=== PATIENT | female | born 1965 | race Caucasian/White ===

== ENCOUNTER 2017-07-14 12:14 | Inpatient (IN) ==
[2017-07-14] MEDS ORDERED: LR 1,000 ML IV SCH (12:45)
[2017-07-14 12:59] VITALS: BMI 28.0
[2017-07-14] MEDS: NOZIN NASAL SWAB NAS ONE ×3 (14:45→14:49)
[2017-07-14] MEDS ORDERED: LIDOCAINE 1% (10mg/ml) 30ml SDV INJ ONE (15:46)
[2017-07-14] MEDS ORDERED: BUPIVACAINE 0.25% (2.5mg/ml) PF 30ml INJECTION ONE (15:46)
[2017-07-14] MEDS ORDERED: VANCOMYCIN 1,000 MG INJECTION ONE ×2 (15:46→16:42)
[2017-07-14] MEDS ORDERED: PROPOFOL 500 MG/50 ML VIAL IV ONE (15:59)
[2017-07-14] MEDS ORDERED: FentaNYL 100 MCG/2 ML INJECTION ONE ×2 (15:59→18:03)
[2017-07-14] MEDS ORDERED: SEVOFLURANE 250ml LIQUID IH ONE (16:01)
--- NOTE | 2017-07-14 16:06 | Anesthesia Preoperative Report ---
Anesthesia Preoperative Record - Date and Time Date: 07/14/17 Preoperative Diagnosis: knee spacer exchange/antibiotic beads Proposed Procedure: right knee I&D and spacer exchange NPO Since Date: 07/13/17 NPO Since Time: 23:00 Allergies/Adverse Reactions: Allergies Allergy/AdvReac Type Severity Reaction Status Date / Time Penicillins Allergy Intermediate HIVES Verified 04/08/09 09:35 - Vital Signs Vital Signs: Temperature 98.4 F 07/14/17 12:57 Pulse Rate 90 07/14/17 13:14 Respiratory Rate 16 07/14/17 12:57 Blood Pressure 116/75 07/14/17 12:57 Pulse Oximetry 99 07/14/17 12:57 Height and Weight: Height 1.65 m Weight 76.6 kg Body Mass Index 28.0 - Medications Inpatient Medications: Current Medications Lactated Ringer's (Lactated Ringers) 1,000 mls @ 50 mls/hr IV .Q20H KENNEDY Last Admin: 07/14/17 13:36 Dose: 50 mls/hr Home Medications: Home Medications Medication Instructions Recorded Confirmed Type Indomethacin SR [Indocin Sr] 75 mg PO DAILY #0 04/09/09 07/14/17 History Is Patient on Beta Jorge?: No - Medical History Respiratory: DENIES: Sleep Apnea Cardiovascular: Reports: Hypertension (hx.) Gastrointestional: Reports: Gastroesophageal Reflux Disease (resolved), Other ( removed colon psuedo tumor) Neuro/Musculoskeletal: Reports: HX.MS.OSAR, Other (arthritis) Other History: Reports: Blood Transfusions (no reaction) DENIES: Anesthesia Reactions - Surgical History Respiratory Surgery/Treatments: Reports: Other (RIGHT LOWER LOBECTOMY AT AGE 11 FOR A SPONTANEOUS PNEUMONIA) GI Surgery/Treatments: Reports: Cholecystectomy (february 2017), Hernia Repair ( inguinal hernia repair), Colonoscopy (2017), Other (gastric sleeve) Musculoskeletal Surgery/Tx: Reports: Total Knee Replacement (jeanine.) Reproductive Surgery/Treatment: Reports: Hysterectomy (vag.), Tubal Ligation Anesthesia Reactions: None Hx Family Anesthesia Reaction: No History of Motion Sickness: No - Social History Smoking Status: Never smoker Hx Chewing Tobacco Use: No Second Hand Exposure: No Substance Use Type: does not use - Pertinent Findings Laboratory: CBC and BMP 07/14/17 13:07 EKG: Sinus Rhythm - Physical Exam Respiratory Exam: Present: lungs clear, bilateral breath sounds equal Cardiovascular Exam: Present: regular rate and rhythm - Airway Assessment Mallampati Score: II TMD: 3 Fingerbreadths Neck Extension: good Overall Assessment: no airway concerns - ASA ASA Score: 2 - Plan Anesthesia: General Inhalation Gases, Regional Block (adductor canal block for post op pain) - Discussion Discussion: Discussed risks/options/alternatives of anesthesia and questions answered. Patient consents. Nursing pain assessment noted. Present for Discussion: family member Attestation Statement: Prior to the delivery of any anesthetic medication, I examined the patient, developed the plan, obtained the patient's consent and discussed the risk and benefits of the procedure with the patient/guardian. - Additional Information Seen by Anesthesia: Yes
[2017-07-14] MEDS ORDERED: KETAMINE 500 MG/10 ML INJECTION ONE (16:15)
[2017-07-14] MEDS ORDERED: DEXAMETHASONE 4 MG/ML INJECTION ONE (16:23)
[2017-07-14] MEDS ORDERED: ONDANSETRON 4 MG/2 ML INJECTION ONE (16:23)
[2017-07-14] MEDS ORDERED: HYDROMORPHONE 2 MG/ML INJECTION ONE (16:35)
[2017-07-14] MEDS ORDERED: TOBRAMYCIN 80 MG/2 ML IAR ONE (17:00)
[2017-07-14] MEDS ORDERED: VANCOMYCIN 1,000 MG INJECTION IAR ONE ×2 (17:08)
[2017-07-14] MEDS ORDERED: ONDANSETRON 4 MG/2 ML INJECTION IVP PRN ×2 (17:09→18:52)
[2017-07-14] MEDS ORDERED: ROPIVACAINE 0.5% (5mg/ml) 30ml INJ ONE (18:09)
[2017-07-14] MEDS: HYDROMORPHONE 2 MG/ML INJECTION IVP PRN ×2 (18:22→18:32)
--- NOTE | 2017-07-14 18:23 | Anesthesia Procedure Note ---
Peripheral Nerve Blockade - Procedure Physician: Jez Griffin MD Date: 07/14/17 Discussion: Discussed risks/options/alternatives of anesthesia and questions answered. Patient consents. Nursing pain assessment noted. Block Start: 18:12 Block Stop: 18:17 Blocked Employed: Adductor Canal, Single Injection Indication: Post-Operative Pain Approach: Right Side Confirmed Position: Supine Patient: Consent, Risks/Benefits Discussed, Informed, Post Block Act. Discussed IV Sedation: Yes (post op) Sedation: Sedate w/Meaningful Contact Initial Vital Signs: Temperature 98.4 F 07/14/17 12:57 Temperature Source Oral 07/14/17 12:57 Pulse Rate 90 07/14/17 12:57 Respiratory Rate 16 07/14/17 12:57 Blood Pressure 116/75 07/14/17 12:57 Blood Pressure Mean 88 07/14/17 12:57 Blood Pressure Position Sitting 07/14/17 12:57 Pulse Oximetry 99 07/14/17 12:57 Oxygen Delivery Method 07/14/17 12:57 Post Vital Signs: Temperature 98.4 F 07/14/17 12:57 Pulse Rate 90 07/14/17 13:14 Respiratory Rate 16 07/14/17 12:57 Blood Pressure 116/75 07/14/17 12:57 Pulse Oximetry 99 07/14/17 12:57 Prep: Chlorhexadine/ETOH, Sterile Technique Ultrasound Used?: Yes - Nerve Simulator Muscle Response: No Paresthesia/Pain: None - Injectate Ropivacaine (%): 0.5 Ropivacaine (mL): 20 Was Epi 1:200,000 Used?: No Injection: Injection made incrementally with constant monitoring and aspiration every 5 ml
--- NOTE | 2017-07-14 18:46 | Anesthesia Postoperative Note ---
- Date and Time Date: 07/14/17 Time: 18:45 - Status Patient Participated in Evaluation: Patient Participated in Person Vital Signs: Temperature 98.3 F 07/14/17 18:07 Pulse Rate 104 H 07/14/17 18:07 Respiratory Rate 20 07/14/17 18:07 Blood Pressure 146/75 H 07/14/17 18:07 Pulse Oximetry 100 07/14/17 18:07 Respiratory Function: Airway Patent, Regular Respirations Cardiovascular Function: Regular Pulse Mental Status: Alert and Oriented Pain Intensity: 2 Hydration: IV Infusing Complications During Recover: None Apparent - Follow-Up Instructions Instructions: Per Surgeon
[2017-07-14] MEDS ORDERED: DiphenhydrAMINE 25 MG CAPSULE PO PRN (18:52)
[2017-07-14] MEDS ORDERED: HYDROMORPHONE 2 MG/ML INJECTION IVP PRN (18:52)
[2017-07-14] MEDS ORDERED: NOZIN NASAL SWAB NAS ONE (18:52)
[2017-07-14] MEDS ORDERED: LORazepam 1 MG TABLET PO PRN (18:52)
[2017-07-14] MEDS ORDERED: DiphenhydrAMINE 50 MG/ML INJECTION IVP PRN (18:52)
[2017-07-14] MEDS ORDERED: VANCOMYCIN - PHARMACY CONSULT MC ONE (18:52)
[2017-07-14] MEDS: ASPIRIN *EC* 81 MG TABLET PO SCH (20:10)
[2017-07-14] MEDS: ACETAMINOPHEN 325 MG TABLET PO SCH (20:10)
[2017-07-14] MEDS: NS 1,000 ML IV SCH (20:11)
[2017-07-14] MEDS: DOCUSATE SODIUM 100 MG CAPSULE PO SCH (20:11)
[2017-07-14] MEDS: SENNOSIDES 8.6 MG TABLET PO SCH (20:11)
[2017-07-14] MEDS: NOZIN NASAL SWAB NAS SCH (23:16)
[2017-07-15] MEDS: Oxycodone *IR* 5 MG TABLET PO PRN ×3 (02:15→19:50)
[2017-07-15] MEDS: NOZIN NASAL SWAB NAS SCH ×2 (06:40→14:14)
--- NOTE | 2017-07-15 08:22 | Operative Note ---
DATE OF SURGERY 07/14/2017 PREOPERATIVE DIAGNOSIS Right knee periprosthetic infection. POSTOPERATIVE DIAGNOSIS Right knee periprosthetic infection. PROCEDURE Irrigation, debridement, spacer exchange and application of antibiotic beads to right knee. SURGEON Jez Griffin MD STEERER JESSEE Vance COMPLICATIONS None. ANESTHESIA General with LMA. BRIEF HISTORY Mrs. Castillo is a kind 52-year-old female who had a right total knee arthroplasty four [address] Salcedo. She has done very well with her knee replacement until three days ago when she noticed increased pain and swelling in the right knee. The pain actually resolved, but she did see Dr. Salcedo yesterday and aspiration of the knee revealed gram-positive cocci and a cell count of over 67,000. Given these findings, Dr. Salcedo and myself both recommended today's procedure. I reviewed with her the risks and benefits of the surgery and expected postoperative course. We also discussed the success of the surgery to eradicate the infection and possible need for further surgery if this does not eradicate the infection. Antibiotics had been held until cultures could be taken intraoperatively. All of her questions were answered. DESCRIPTION OF PROCEDURE Mrs. Castillo and her right knee were identified and marked in the preoperative holding area. She was brought back to the operating suite and placed supine on the operating table. She was placed under general anesthesia. The right lower extremity was prepped and draped in my normal sterile fashion. Time-out was performed but antibiotics were not yet given. We utilized the previous anterior midline incision. Sharp dissection was carried down to the capsule. Capsulotomy was then performed. This was a medium parapatellar arthrotomy. Inside the knee joint there was dish-water appearing fluid. It was not by any means a terribly large effusion. I began by taking three synovial biopsies. These were handed off individually into sterile cups. We then gave the go-ahead for IV vancomycin to be given. I continued with a complete synovectomy which was done sharply. The tissue itself appeared healthy without any signs of chronic infection or necrosis. The knee replacement also had no signs of abnormal wear or loosening. The knee itself was nice and stable throughout range of motion. The patella tracked well. After a thorough synovectomy was performed, the previous spacer was removed. Debridement of the posterior capsule was also performed with a curette. We then thoroughly irrigated the knee using iodine solution as well as normal saline. A total of 6 liters were used. We then thoroughly irrigated the knee with IrriSept solution. The metal components were rubbed with the sponge side of a scrub brush. A curette was used on the other exposed bone. We then replaced the spacer with a brand new spacer. It was a PS 12 mm spacer. It was installed without incident. A locking bar was also installed. I then irrigated one more time with Betadine solution and another 3 liters of normal saline. After that again the remaining IrriSept solution was used. We then placed STIMULAN calcium sulfate pellets in both gutters which were filled with half a gram of vancomycin and 240 mg of tobramycin. One gram of vancomycin powder was also placed into the knee joint before the capsulotomy was closed with antimicrobial resistant #1 Vicryl suture. The subcutaneous tissue was then closed with 2-0 antimicrobial Vicryl suture. The skin was closed with running 4-0 Monocryl in the subcuticular layer followed by Dermabond and a sterile dressing. Everybody involved then changed gloves after the first 3 liters of irrigation was performed. After completion of surgery she was allowed to awaken from general anesthesia and taken to the recovery room under the care of Anesthesia. She tolerated the procedure well. There were no complications. IV vancomycin will be continued until a bug is identified and sensitivities are also identified. DIAMANTE
--- NOTE | 2017-07-15 08:34 | Orthopedic Progress Note ---
Date: Subjective/Severity of Illness: Judy is doing well. Pain is much less than she expected. Her synovial tissues samples from the OR have not been processed yet. Synovial fluid exam from 07/13 showed gm+ cocci but no identification beyond that is documented yet. Dr Mckinnon has ordered a CT of the pelvis and abdomen to r/o infectious process due to her previous hx last summer. Bowels have been different since her surgery last summer. She will adjust her bowel meds as needed. No CP or SOA. No other joint concerns this AM. Orthopedic Objective PO Vital signs: Temperature 97.9 F 07/15/17 07:41 Pulse Rate 73 07/15/17 07:41 Respiratory Rate 16 07/15/17 04:00 Blood Pressure 120/69 07/15/17 07:41 Pulse Oximetry 98 07/15/17 07:41 Height and Weight: Height 5 ft 5 in Weight 173 lb 15.115 oz Body Mass Index 28.0 - Constitutional General Appearance: Present: alert, cooperative, no acute distress - Respiratory Exam Present: non-labored - Extremities Exam Extremities: Present: pulses intact - Surgical Site Incision: Mepilex dressing intact, dressing intact - Neurological Exam Present: no deficits - Psychiatric Exam Present: alert, normal affect - Labs Result Diagrams: 07/15/17 04:04 07/15/17 04:04 Abnormal lab results 07/14/17 07/15/17 07/15/17 Range/Units 13:07 04:04 04:04 RBC 3.79 L (4.00-5.20) M/MM3 Hgb 10.1 L 8.8 L D (12-16) GM/DL Hct 33.5 L 29.6 L D (36-46) % MCHC 30.1 L (31-37) GM/DL Neut % (Auto) 71.7 H (33-66) % Lymph % (Auto) 20.3 L (23-45) % Creatinine 0.6 L (0.7-1.2) MG/DL C-Reactive Protein 60.9 H (0-9) MG/L H & H 07/14/17 07/15/17 Range/Units 13:07 04:04 Hgb 10.1 L 8.8 L D (12-16) GM/DL Hct 33.5 L 29.6 L D (36-46) % Orthopedic Assessment and Plan (1) Painful total knee replacement Status: Acute Assessment and Plan: Await gram stain and C/S from synovial tissue in surgery last night. Synovial fluid analysis from 07/13/17 should give more information today. ID consult with Dr Vaughan expected today. Consider PICC line depending on Dr Vaughan recommendations. CT abdomen and pelvis today per Dr Salcedo's recommendations. ASA and SCDs for DVT coverage. Mobilize with PT / OT. - Anticoagulation Therapy Anticoagulation: ASA 81 mg PO BID x6 weeks Hospital Course Summary Disclaimer: The visit summary below is not to be considered part of the above Progress Note.
--- NOTE | 2017-07-15 09:33 | Pharmacy Consult-Antibiotics ---
Pharmacy Consult-Vancomycin - Laboratory Information WBC 8.7 T/MM3 (4.5-11.0) 07/14/17 13:07 BUN 12.0 MG/DL (7-17) 07/15/17 04:04 Creatinine 0.6 MG/DL (0.7-1.2) L 07/15/17 04:04 - Consult Information VANCOMYCIN CONSULT: Dx: Painful total knee replacement. Current Renal Fx: SCr = 0.6 mg/dl. Estimated Cr Cl ~ 116 mL/min Will change the original dose of Vancomycin 2,000 mg IV q8hrs.to Vancomycin 1, 500 mg iv every 8 hours. The pharmacy will continue to monitor and adjust regimen to maintain therapeutic levels. Thank you for the VancomycinCharli, Pharmacist.
[2017-07-15] MEDS ORDERED: NS 100 ML ONE (10:03)
[2017-07-15] MEDS ORDERED: SALINE FLUSH 10ml SYRINGE ONE (10:03)
[2017-07-15] MEDS ORDERED: IOHEXOL 300mg/ml 100ml INJECTION ONE (10:03)
[2017-07-15] MEDS: ASPIRIN *EC* 81 MG TABLET PO SCH (10:50)
[2017-07-15] MEDS: POLYETHYL GLYCOL 3350 17gm PACKET PO SCH (10:50)
[2017-07-15] MEDS: ACETAMINOPHEN 325 MG TABLET PO SCH ×3 (10:50→17:06)
[2017-07-15] MEDS: DOCUSATE SODIUM 100 MG CAPSULE PO SCH (10:50)
--- NOTE | 2017-07-15 14:06 | CT Scan Report ---
Indication: Infected prosthetic hardware, evaluate for intra-abdominal infectious process PROCEDURE: CT abdomen pelvis w con: Encounter: Initial Comparison: None Technique: Axial CT images were performed through the abdomen and pelvis after the administration of intravenous contrast. Coronal and sagittal two-dimensional reformats. Automated Exposure Control and Iterative Reconstruction dose reducing techniques were utilized. Contrast: Omnipaque 300 100 mL Findings: The lung bases are clear. The liver is normal. The gallbladder is surgically absent. The spleen, pancreas and adrenal glands are within normal limits. Postoperative changes from prior gastric bypass. The kidneys are normal. No abdominal or pelvic lymphadenopathy. There is a small bowel containing left inguinal hernia without evidence of acute bowel obstruction. Bladder is normal. Uterus is absent. Mild sigmoid diverticulosis without evidence of diverticulitis. Postoperative changes from right sided colon resection. There is some residual inflammation in the surrounding fat probably due to the surgery. There is no undrained fluid collection or rim-enhancing abscess appreciated. Bone windows show mild scoliosis and degenerative change in the spine. No lytic or blastic osseous lesion. The patient was brought to the imaging department 2.5 hours later for more delayed phase imaging which demonstrates progression of oral contrast throughout the colon. There is some soft tissue thickening or edema at the anastomosis site but no evidence of undrained fluid or abscess. Impression: Residual inflammation from right colon surgery without evidence of abscess. .
[2017-07-15] MEDS: NS 1,000 ML IV SCH (15:00)
[2017-07-15] MEDS ORDERED: SENNOSIDES 8.6 MG TABLET PO PRN (17:56)
[2017-07-16] MEDS: ACETAMINOPHEN 325 MG TABLET PO SCH ×5 (00:31→21:12)
[2017-07-16] MEDS: NOZIN NASAL SWAB NAS SCH ×4 (00:31→21:25)
[2017-07-16] MEDS: ASPIRIN *EC* 81 MG TABLET PO SCH ×3 (00:31→21:12)
[2017-07-16] MEDS: Oxycodone *IR* 5 MG TABLET PO PRN ×4 (00:32→22:36)
[2017-07-16] MEDS: DOCUSATE SODIUM 100 MG CAPSULE PO SCH ×3 (00:33→21:24)
[2017-07-16] MEDS: SENNOSIDES 8.6 MG TABLET PO SCH ×2 (00:34→21:24)
[2017-07-16] MEDS: POLYETHYL GLYCOL 3350 17gm PACKET PO SCH (08:05)
--- NOTE | 2017-07-16 09:19 | Orthopedic Progress Note ---
Date: Subjective/Severity of Illness: Judy is doing well. She is up and seated in her chair today. Notes that pain got a little ahead of her yesterday but much improved now. Cultures remain pending. Denies NVFC. Synovial fluid exam from 07/13 showed gm+ cocci but no identification beyond that is documented yet. PICC line placed yesterday. No other joint concerns this AM. Awaiting culture/ sensitivities and Dr. Vaughan to evaluate. Orthopedic Objective PO Vital signs: Temperature 98.2 F 07/16/17 08:00 Pulse Rate 79 07/16/17 08:00 Respiratory Rate 16 07/16/17 08:00 Blood Pressure 119/67 07/16/17 08:00 Pulse Oximetry 100 07/16/17 08:00 Height and Weight: Height 5 ft 5 in Weight 173 lb 11.588 oz Body Mass Index 28.0 - Constitutional General Appearance: Present: alert, cooperative, no acute distress - Respiratory Exam Present: non-labored - Extremities Exam Extremities: Present: pulses intact - Surgical Site Incision: Mepilex dressing intact, dressing intact - Neurological Exam Present: no deficits - Psychiatric Exam Present: alert, normal affect - Labs Result Diagrams: 07/16/17 04:02 07/16/17 04:02 Abnormal lab results 07/16/17 07/16/17 Range/Units 04:02 04:02 Hgb 8.3 L (12-16) GM/DL Hct 27.7 L (36-46) % Creatinine 0.6 L (0.7-1.2) MG/DL H & H 07/14/17 07/15/17 07/16/17 Range/Units 13:07 04:04 04:02 Hgb 10.1 L 8.8 L D 8.3 L (12-16) GM/DL Hct 33.5 L 29.6 L D 27.7 L (36-46) % Orthopedic Assessment and Plan (1) Painful total knee replacement Status: Acute Assessment and Plan: Await gram stain and C/S from synovial tissue in surgery as still pending. ID consult with Dr Vaughan expected Tuesday. PICC line already placed. ASA and SCDs for DVT coverage. Mobilize with PT / OT. Hospital Course Summary Disclaimer: The visit summary below is not to be considered part of the above Progress Note.
--- NOTE | 2017-07-16 14:48 | Pharmacy Consult-Antibiotics ---
Pharmacy Consult-Vancomycin - Laboratory Information WBC 8.7 T/MM3 (4.5-11.0) 07/14/17 13:07 BUN 12.0 MG/DL (7-17) 07/16/17 04:02 Creatinine 0.6 MG/DL (0.7-1.2) L 07/16/17 04:02 Vancomycin Trough 26.02 UG/ML (15-20) H* 07/16/17 13:36 Vancomycin DAY 3 Therapy: Vancomycin started post knee spacer exchange/antibiotic beads implant on 07/14. Trough high - HOLDING dose until tonight at 2100, then will restart at 1500mg IV q12hrs. This gives calculated peak/trough = 26/17 (trough target range = 15-20mcg/ml). Renal fx remains stable. Will confirm trough level prior to dose on 1120 am. Thank you.
[2017-07-16] MEDS ORDERED: BISACODYL 10 MG SUPPOSITORY RECTALLY SCH (20:00)
[2017-07-17] MEDS: NOZIN NASAL SWAB NAS SCH ×3 (06:04→21:35)
--- NOTE | 2017-07-17 06:53 | Orthopedic Progress Note ---
Date: Subjective/Severity of Illness: Judy continues to do well. Pain is well controlled. She has been up and ambulating. Cultures remain pending with negative gram stain and no microbial growth. Denies NVFC. Synovial fluid exam from 07/13 showed gm+ cocci but no identification beyond that is documented yet. PICC line is in place. No other joint concerns this AM. Awaiting culture/ sensitivities and Dr. Vaughan to evaluate. Orthopedic Objective PO Vital signs: Temperature 97.9 F 07/17/17 06:00 Pulse Rate 80 07/17/17 06:00 Respiratory Rate 16 07/17/17 06:00 Blood Pressure 124/69 07/17/17 06:00 Pulse Oximetry 98 07/17/17 06:00 Height and Weight: Height 5 ft 5 in Weight 173 lb 11.588 oz Body Mass Index 28.0 - Constitutional General Appearance: Present: alert, cooperative, no acute distress - Respiratory Exam Present: non-labored - Cardiovascular Exam Capillary Refill: < 2-3 Seconds - Abdominal Exam Present: soft, normoactive BS x4. Absent: tenderness, distended - Extremities Exam Extremities: Present: pulses intact. Absent: Catrina's sign - Surgical Site Incision: clean, dry, intact, Mepilex dressing intact, dressing intact - Neurological Exam Present: no deficits - Psychiatric Exam Present: alert, normal affect - Labs Result Diagrams: 07/16/17 04:02 07/16/17 04:02 Abnormal lab results 07/16/17 Range/Units 13:36 Vancomycin Trough 26.02 H* (15-20) UG/ML H & H 07/14/17 07/15/17 07/16/17 Range/Units 13:07 04:04 04:02 Hgb 10.1 L 8.8 L D 8.3 L (12-16) GM/DL Hct 33.5 L 29.6 L D 27.7 L (36-46) % Orthopedic Assessment and Plan (1) Painful total knee replacement Status: Acute Assessment and Plan: Await gram stain and C/S from synovial tissue in surgery as still pending. but negative thus far. ID consult with Dr Vaughan expected Tuesday. PICC line already placed. ASA and SCDs for DVT coverage. Continue to mobilize with PT / OT. Hospital Course Summary Disclaimer: The visit summary below is not to be considered part of the above Progress Note.
[2017-07-17] MEDS: ASPIRIN *EC* 81 MG TABLET PO SCH ×2 (09:03→21:34)
[2017-07-17] MEDS: POLYETHYL GLYCOL 3350 17gm PACKET PO SCH (09:03)
[2017-07-17] MEDS: DOCUSATE SODIUM 100 MG CAPSULE PO SCH ×2 (09:03→21:20)
[2017-07-17] MEDS: ACETAMINOPHEN 325 MG TABLET PO SCH ×4 (09:03→21:33)
[2017-07-17] MEDS: Oxycodone *IR* 5 MG TABLET PO PRN ×2 (11:54→21:33)
[2017-07-17] MEDS ORDERED: SALINE FLUSH 10ml SYRINGE IV PRN (13:19)
[2017-07-17] MEDS: SENNOSIDES 8.6 MG TABLET PO SCH (21:20)
[2017-07-18 04:40] VITALS: RESP 16
[2017-07-18] MEDS: NOZIN NASAL SWAB NAS SCH (07:16)
[2017-07-18] MEDS: POLYETHYL GLYCOL 3350 17gm PACKET PO SCH (08:34)
[2017-07-18] MEDS: DOCUSATE SODIUM 100 MG CAPSULE PO SCH (08:34)
[2017-07-18] MEDS: ASPIRIN *EC* 81 MG TABLET PO SCH (08:46)
[2017-07-18] MEDS: ACETAMINOPHEN 325 MG TABLET PO SCH (08:46)
--- NOTE | 2017-07-18 09:34 | Infectious Disease Consult ---
Infectious Disease Consult Date of Consultation: 07/18/17 Requesting Physician: Jez Griffin Reason for Consultation: antibiotic recs History of Present Illness: Ms. Castillo is a 52 y/o woman with a h/o bilateral TKAs. She noted R knee stiffness last Tuesday (07/11), which progressed overnight. By Tuesday, she had pain, swelling, and her knee felt tight. She was seen by Dr. Salcedo on 07/13 and she had 67K WBCs, and the gram stain had some GPC. She was admitted, and undwerwent I&D with poly exchange on 07/14. All the cultures have been negative. The only one with a positive gram stain was the initial aspiration. She's been on Vancomycin. I've been asked to help with her antibiotics. She feels that she's ready for discharge today. Medications Home Medications Medication Instructions Recorded Confirmed Type Indomethacin SR [Indocin Sr] 75 mg PO DAILY #0 04/09/09 07/14/17 History Allergies Allergy/AdvReac Type Severity Reaction Status Date / Time Penicillins Allergy Intermediate HIVES Verified 04/08/09 09:35 [facility] Patient Stated Medical History Other HEENT Yes: wear glasses Hypertension Yes: hx. Sleep Apnea No Gastroesophageal Reflux Yes: resolved Disease Other GI Yes: removed colon psuedo tumor Hx Renal Disease No Hx Urinary Tract Infection Yes: occ. Anemia Yes Osteoarthritis Yes Other Musculoskeletal Yes: arthritis Other Infectious Yes: CHICKEN POX A CHILD Anesthesia Reactions No Blood Transfusions Yes: no reaction Clinic Medical History (Last Reviewed 07/13/17 @ 13:39 by Jose Salcedo MD) Painful total knee replacement (Acute Medical) Surgical History: Partial hysterectomy. Resection of right lower lobe of lung age 11 for pneumothorax. R inguinal hernia repair. lap allen February 2017. intestinal resection with anastamosis March 2017. R TKA 2012, L TKA 2007 Family History: Father of [place] Mother has HTN, arthritis 2 sisters have from MDS, and 1 sister of AML - Social History Smoking status: Never smoker Substance use type: does not use Alcohol intake frequency: does not drink Current occupation: RN at [employer] Current residence: Apartment/Private Home Review of Systems - Constitutional Constitutional: Absent: chills, fever(s) - EENMT Eyes: Absent: change in vision - Cardiovascular Cardiovascular: Absent: chest pain - Respiratory Respiratory: Absent: cough, dyspnea - Gastrointestinal Gastrointestinal: Present: diarrhea (intermittent, after her colon resection). Absent: abdominal pain, nausea, vomiting - Genitourinary Genitourinary: Absent: dysuria - Musculoskeletal Musculoskeletal: Present: arthralgias (R knee), joint swelling (R knee) - Integumentary/Breasts Integumentary: Absent: rash - Neurological Neurological: Absent: headache(s) - Psychiatric Psychiatric: Absent: anxiety, depression Exam Vital Signs: Temperature 98.3 F 07/18/17 07:43 Pulse Rate 88 07/18/17 07:43 Respiratory Rate 16 07/18/17 07:43 Blood Pressure 107/67 07/18/17 07:43 Pulse Oximetry 98 07/18/17 07:43 Height/Weight/BMI: Height 1.65 m Weight 78.8 kg Body Mass Index 28.0 - Constitutional Present: no acute distress, well nourished, well developed - Routine HEENT Exam Head: Present: normocephalic Eye: Present: EOMI, PERRL ENT: Present: mucous membranes moist, oropharynx clear, dentition normal - Routine Neck Exam Present: supple - Routine Respiratory Exam Present: CTA bilaterally - Routine Cardiovascular Exam Present: RRR. Absent: murmur - Routine Abdominal Exam Present: soft, normoactive bowel sounds, non distended. Absent: tenderness, rebound, guarding - Routine Extremities Exam Absent: cyanosis, clubbing, edema - Detailed Lower Extremity Exam Knee: Right joint effusion, Right warmth, Right full ROM (appears to be able to walk without problems) - Routine Skin Exam Absent: rash Comments: RUE PICC site ok - Routine Neurological Exam Present: alert, oriented X3, CN II-XII intact. Absent: motor deficit - Routine Psychiatric Exam Present: normal affect, normal thought process Results - Labs CBC & Chem 7: 07/16/17 04:02 07/16/17 04:02 Labs: Laboratory Tests 07/13/17 11:05 Fluid RBC [id number] Fld Tot Nucleated Cell 31784 Fluid Neutrophils 87 Fluid Lymphocytes 3 Fluid Monocytes 10 Microbiology Results: Microbiology 07/14/17 16:41 Knee, Right Intraop Tissue Gram Stain - Final 07/14/17 16:41 Knee, Right Intraop Tissue Surgical Culture - Final No Growth After 3 Days 07/14/17 16:40 Knee, Right Intraop Tissue Gram Stain - Final 07/14/17 16:40 Knee, Right Intraop Tissue Surgical Culture - Final No Growth After 3 Days 07/14/17 16:39 Knee, Right Intraop Tissue Gram Stain - Final 07/14/17 16:39 Knee, Right Intraop Tissue Surgical Culture - Final No Growth After 3 Days Impression: Infected R TKA, s/p I&D with poly exchange 07/14/17, GPC on stain, but cultures negative. 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 CM has already contacted [facility]. I wrote for routine PICC cares, weekly CBC with diff, BMP, CRP , CPK to be faxed to my office at [phone]. I'll see her in follow up in about 3 weeks. OK to discharge after her first dose of Dapto. Discussed with Dr. Griffin.
[2017-07-18] MEDS ORDERED: DAPTOmycin 500 MG in NS 10 ML IVP SCH (09:45)
[2017-07-18] MEDS: Oxycodone *IR* 5 MG TABLET PO PRN (11:40)
[2017-07-18 12:23] VITALS: BP 125/73; PULSE 83; TEMP 97.9; O2SAT 97
--- NOTE | 2017-07-26 07:26 | Discharge Summary ---
Orthopedic Discharge Info Date of admission: 07/14/17 12:14 Anticipated date of discharge: 07/18/17 Primary care physician: Ayad Donohue MD Attending Physician: Jez Griffin MD Consults: 07/14/17 18:52 Case Management Consult [CONS] Routine Reason For Exam: Discharge Planning DME-Walker [CONS] Routine Height: 5 ft 5 in Weight: 168 lb 13.985 oz Comment: change dressing in 2 weeks Physician [Physician Consult] [CONS] Routine Consulting Provider: Sahara Vaughan Reason For Exam: Septic TKA Ordering Provider has Notified Certified Coatings Inspector: No Total Joint Outpatient Therapy [CONS] Routine Comment: change dressing in 2 weeks - Discharge Diagnosis (1) Painful total knee replacement Status: Acute - Procedures Procedures: Procedures Other and unspecified vaginal hysterectomy (04/09/09) Other repair of vulva and perineum (04/09/09) Spinal blood patch (04/09/09) Total knee replacement (03/13/13) Vaginal reconstruction (04/09/09) I&D right knee with spacer exchange 07/11/17. - Laboratory Result Diagrams: 07/16/17 04:02 07/16/17 04:02 Laboratory: H & H 07/14/17 07/15/17 07/16/17 Range/Units 13:07 04:04 04:02 Hgb 10.1 L 8.8 L D 8.3 L (12-16) GM/DL Hct 33.5 L 29.6 L D 27.7 L (36-46) % - Microbiology Microbiology 07/14/17 16:41 Knee, Right Intraop Tissue Gram Stain - Final 07/14/17 16:41 Knee, Right Intraop Tissue Surgical Culture - Final No Growth After 3 Days 07/14/17 16:40 Knee, Right Intraop Tissue Gram Stain - Final 07/14/17 16:40 Knee, Right Intraop Tissue Surgical Culture - Final No Growth After 3 Days 07/14/17 16:39 Knee, Right Intraop Tissue Gram Stain - Final 07/14/17 16:39 Knee, Right Intraop Tissue Surgical Culture - Final No Growth After 3 Days Orthopedic Discharge HPI - HPI Comments Ms. Castillo is a 52 y/o woman with a h/o bilateral TKAs. She noted R knee stiffness last Tuesday (07/11), which progressed overnight. By [facility], she had pain, swelling, and her knee felt tight. She was seen by Dr. Salcedo on 07/13 and had the right knee aspirated for synovial fluid analysis. She had 67K WBCs, and the gram stain had some GPC. There is no known source of her infection. She did have surgery for a benign cecal lesion during the summer, but is not having any symptoms of infection. She was admitted for surgical I&D with poly exchange on 07/14. Orthopedic Hospital Course Hospital course: After appropriate preoperative clearance and signing of operative consent, Judy was taken to the operating room and underwent I&D with spacer exchange of her right total knee. The synovial fluid at the time of surgery was cloudy and suspicious for infectious process. Synovial tissue was sent for culture. Antibiotic (Vancomycin) was given after cultures were obtained. Following surgery, the appropriate anticoagulants were initiated and SCDs added for DVT prevention. The dressing was clean, dry, and intact. Pain control was obtained via multimodal approach. Bowel motivation addressed with scheduled and PRN medications. Early mobilization was initiated through PT services. Dr Vaughan from infectious disease was consulted. All the cultures remained negative. The only one with a positive gram stain was the initial aspiration. Daptomycin was recommended and weekly labs ordered. Discharge arrangements per CM. Follow-up is scheduled in 2-3 weeks. Discharge instructions given by orthopedic providers and nursing staff at discharge. Discharge condition was good. Discharge Plan - Med Rec/Dispo Referrals/Follow Up: Brice Cummings PA [Physician Exploration Manager] - 07/25/17 2:30 pm Lucia Instructions: [facility] Gaby General Instructions Additional Instructions: ON LICENSE OF [facility] ON 07/18/2017 AT 10:30AM FOR PHYSICAL THERAPY EVAL. PHONE Prescriptions: New Aspirin *EC* [Ecotrin] 81 mg PO BID tab Acetaminophen [Tylenol] 650 mg PO QID tab DAPTOmycin [Cubicin] 500 mg IVP DAILY vial Continue Indomethacin SR [Indocin Sr] 75 mg PO DAILY #0 - Disposition 01 Discharged Home, Self-Care - Dismissal Complete Discharge Instructions are:: Complete
== END 2017-07-18 12:32 | disposition home or self-care (01) | DRG 561 ==
LOC: SRG 12:14
PROVIDERS: ADMIT Orthopaedic Surgery; ATTEND Orthopaedic Surgery